=== PATIENT | female | born 1940 ===

== ENCOUNTER 2016-07-17 07:43 | Emergency (ER) | payer MEDICARE ==
[~2016-07-17] VITALS: Ht 170.2 cm; Wt 73.0 kg
[2016-07-17 08:03] LABS: BASOPHILS % (AUTO) 0 % (0-2); EOSINOPHILS # (AUTO) 0.2 10^3uL; EOSINOPHILS % (AUTO) 5 % (0-4); LYMPHOCYTES # (AUTO) 1.9 X10^3; MEAN CORPUSCULAR HEMOGLOBIN 30.3 PG (26.0-34.0); MEAN CORPUSCULAR HGB CONC 34.5 g/dL (31.0-37.0); MEAN CORPUSCULAR VOLUME 88 FL (80-100); MEAN PLATELET VOLUME 10.4 FL (6.0-9.5); MONOCYTES # (AUTO) 0.5 X10^3; MONOCYTES % (AUTO) 10 % (3-11); NEUTROPHILS # (AUTO) 2.2 X10^3; NEUTROPHILS % (AUTO) 46 % (51-67); PLATELET COUNT 259 10^3uL (150-450); WHITE BLOOD COUNT 4.78 10^3uL (4.0-11.0)
[2016-07-17 08:18] LABS: ALBUMIN 3.8 g/dL (3.4-5.0); ANION GAP 12.8 MEQ/L (3-15); CALCULATED IONIZED CALCIUM 4.4 mg/dL (3.8-4.6)
--- NOTE | 2016-07-17 08:24 | NUR ---
Elida Disla, daughter and DPOA, called for an update on patient. This nurse answered her questions, she will call back in one hour when we have more test results.
--- NOTE | 2016-07-17 09:11 | NUR ---
PT TALKS TO FAMILY ON HER CELL PHONE. PT REQUESTS A PHONE BK IN ORDER FOR HER TO CALL HER DENTIST. CL
--- NOTE | 2016-07-17 09:20 | NUR ---
This nurse calls snf for patient pick-up. Report given to SUSANNE Abel and questions answered by this nurse.
[2016-07-17 09:43] VITALS: BP 131/81
== END 2016-07-17 09:44 | disposition home or self-care (01) ==
LOC: EDUNIT# 07:43 → ED 07:45
DX: S70.01XA Contusion of right hip, initial encounter (principal); W05.0XXA Fall from non-moving wheelchair, initial encounter; Z91.81 History of falling; Y93.89 Activity, other specified; Y92.129 Unspecified place in nursing home as the place of occurrence of the external cause
CPT/HCPCS: 36415; 70450; 72125; 80053; 85025; 85610; 85730; 99283

== ENCOUNTER → 2016-07-17 | Outpatient (CLI) | payer MEDICARE | LOC: EMS 07:10 | PROVIDERS: ATTEND Emergency Medicine | DX: M25.551 Pain in right hip (principal); W05.0XXA Fall from non-moving wheelchair, initial encounter; Y92.129 Unspecified place in nursing home as the place of occurrence of the external cause ==